=== PATIENT | male | born 1950 | race Caucasian/White ===

== ENCOUNTER → 2017-12-16 | Outpatient (CLI) | payer MEDICARE, OTHER ==
[~2017-12-16] MED LIST: ACTOS30 MG PO; ASPIRIN E.C. 8181 MG PO; BYSTOLIC10 MG PO; CARDIZEM CD 12120 MG PO; CARDIZEM120 MG PO; CATAPRES 0.1MG0.1 MG PO; COZAAR100 MG PO; DOXYCYCLINE 10100 MG PO; EPA-CON500 MG PO; HYDROCHLOROTH12.5 MG PO; JANUVIA100 MG PO; JARDIANCE25 PO; LANTUS100 U/ML SQ; LASIX 40MG TABL40 MG PO; LISINOPRIL40 MG PO; METFORMIN1000 MG PO; METFORMIN500 MG PO; NORCO 325 MG-51 TAB PO; NOVOLOG FLEX100 U/ML SC; PLAVIX 75MG TAB75 MG PO; PRINIVIL5 MG PO; SIMVASTATIN20 MG PO; SODIUM CHLORIDE 5% PO; STOOL SOFTENER100 M2 PO; TOPROL XL 25MG25 MG PO; VALIUM 5MG T5 MG/TAB PO; VICTOZA6 MG/ML SC; VITAMIN D1000 IU PO; ZOCOR 20MG20 MG PO
== END ==
LOC: COL.RAD 08:29
DX: I70.209 Unspecified atherosclerosis of native arteries of extremities, unspecified extremity (principal); M79.604 Pain in right leg; M79.605 Pain in left leg; N28.1 Cyst of kidney, acquired; K80.20 Calculus of gallbladder without cholecystitis without obstruction; R60.0 Localized edema
CPT/HCPCS: Q9967

== ENCOUNTER → 2022-01-30 | Outpatient (CLI) | payer MEDICARE, OTHER ==
[2022-01-30 13:06] LABS: CALCIUM 9.4 mg/dL (8.4-10.2); CREATININE, serum 1.11 mg/dL (0.72-1.25); POTASSIUM 4.1 mmol/L (3.5-4.5)
== END ==
LOC: COL.LAB 12:29
PROVIDERS: Internal Medicine
DX: N28.9 Disorder of kidney and ureter, unspecified (principal); E86.0 Dehydration

== ENCOUNTER 2023-11-25 11:31 | Inpatient (IN) | payer MEDICARE, OTHER ==
[~2023-11-25] VITALS: Ht 175.3 cm; Wt 107.1 kg
[~2023-11-25 11:31] MED LIST changes: +CETRA VITE SENI1 TAB PO; +FLOMAX 0.40.4 MG/CAP PO; +GLUCOPHAGE1000 MG PO; +LASIX 20MG TABL20 MG PO; +LIPITOR 10MG10 MG PO; +LOPRESSOR 225 MG/TAB PO; +LOPRESSOR100 MG PO; +MINOXIDIL 2.5 PO; +NORVASC 10MG10 MG PO; +OMEGA-31 SGL PO; +OXYGEN NASAL.CANN; +OZEMPIC2 MG/0.75 SQ; +PREDNISONE20 MG PO; +VITAMIN B COMPL1 SGL PO; -VITAMIN D1000 IU PO; +VITAMIN D31000 I1 PO; +ZYRTEC10MGSGL PO
[2023-11-25] MEDS ORDERED: ROCEPHIN 2GM VIAL21 IV (13:34)
[2023-11-25] MEDS ORDERED: HUMALOG PEN100 U/ML SQ ×2 (13:38→13:40)
[2023-11-25] MEDS ORDERED: MELATONIN5 M1 PO (13:41)
[2023-11-25] MEDS ORDERED: ROXICODONE 55 MG/TAB PO (13:41)
[2023-11-25] MEDS ORDERED: MIRALAX PA17 GM/Dose PO (13:42)
[2023-11-25] MEDS ORDERED: SENNA-S 50 MG-81 TAB PO (13:43)
[2023-11-25] MEDS ORDERED: CUBICIN 500MG500 MG IV (13:43)
[2023-11-25] MEDS ORDERED: MOUNJARO7.5 MG/0.5 SQ (13:46)
[2023-11-25] MEDS ORDERED: NEURONTIN100 MG/CAP PO (13:49)
[2023-11-25] MEDS ORDERED: Sennosides/Docusate 8.6-50 MG TAB PO PRN (15:15)
[2023-11-25] MEDS ORDERED: Polyethylene Glycol 3350 17 GM PDS PO PRN (15:15)
[2023-11-25] MEDS ORDERED: Docusate Sodium 100 MG CAP PO PRN (15:15)
[2023-11-25] MEDS ORDERED: Naloxone 0.4 MG/ML VIAL IV PRN (15:15)
[2023-11-25] MEDS ORDERED: Acetaminophen 325 MG TAB PO PRN (15:15)
[2023-11-25] MEDS ORDERED: hydrALAZINE 10 MG TAB PO PRN (15:30)
[2023-11-25] MEDS ORDERED: oxyCODONE 5 MG TAB PO PRN (15:30)
[2023-11-25] MEDS ORDERED: Empagliflozin 25 MG TAB PO SCH (15:45)
[2023-11-25] MEDS ORDERED: Furosemide 20 MG TAB PO SCH (16:00)
[2023-11-25] MEDS ORDERED: Glucagon 1 MG VIAL IM PRN (16:15)
[2023-11-25] MEDS ORDERED: Dextrose 50% Water 25 GM/50 ML SYRINGE IV PRN (16:15)
[2023-11-25] MEDS ORDERED: Dextrose (Glucose) 15 GM (4 x 3.75 GM) Chewable TABLET PACK PO PRN (16:15)
[2023-11-25 16:26] VITALS: BP 173/74; PULSE 51
--- NOTE | 2023-11-25 16:26 | NUR ---
PT WORKING WITH THERAPY IN ROOM. V/S OBTAINED 40 MINUTES AFTER ADMINISTRATION OF HYDRALAZINE. PT'S B/P IMPROVED. PT REMAINS ASYMPTOMATIC. PT WORKING WITH PT, FAMILY AT BEDSIDE, DENIES FURTHER NEEDS. PT AGREEABLE TO PLAN OF CARE.
[2023-11-25] MEDS ORDERED: Insulin Lispro (HumaLOG) SQ SCH ×2 (16:30→17:00)
[2023-11-25] MEDS ORDERED: metFORMIN 500 MG TAB PO SCH (17:00)
[2023-11-25] MEDS ORDERED: NOVOLOG FLEX100 U/ML SQ ×3 (17:28→17:29)
[2023-11-25 18:42] VITALS: BP_SYST 173
[2023-11-25 19:00] VITALS: BP 188/71; PULSE 47; TEMP 97.8
--- NOTE | 2023-11-25 20:42 | NUR ---
PATIENT IS RESTING IN BED. DENIES ANY PAIN IN THE RIGHT FOOT BUT DOES HAVE SEVERAL QUESTIONS ABOUT HIS WOUND VAC WHICH THIS RN ANSWERED TO BEST ABILITY. DENIES ANY SHORTNESS OF BREATH OR CHEST PAIN. CURRENTLY STABLE ON ROOM AIR, ALERT AND ORIENTED. CALL LIGHT IS WITHIN REACH. BED IS LOCKED AND IN LOW POSITION.
[2023-11-25] MEDS ORDERED: Gabapentin 300 MG CAP PO SCH (21:00)
[2023-11-25] MEDS ORDERED: Melatonin 3 MG TAB PO SCH (21:00)
[2023-11-25] MEDS ORDERED: Sennosides/Docusate 8.6-50 MG TAB PO SCH (21:00)
[2023-11-25] MEDS ORDERED: Gabapentin 100 MG CAP PO SCH (21:00)
[2023-11-25 21:45] VITALS: BP_SYST 188
[2023-11-25 23:04] VITALS: BP 197/71; PULSE 54
[2023-11-25] MEDS ORDERED: hydrALAZINE 20 MG/ML 1 ML VIAL IV PRN (23:45)
[2023-11-26] VITALS (12 sets, daily range): BP systolic 128–182; BP diastolic 57–89; PULSE 55–72; TEMP 97.5–97.7
--- NOTE | 2023-11-26 00:04 | NUR ---
PCT INFORMED RN THAT PATIENT'S SYSTOLIC BLOOD PRESSURE WAS 200 WITH LOWEST READING BEING 197. WHILE RN WAS IN THE ROOM RECHECKING BLOOD PRESSURE, INITIAL READING WAS 172/67, HOWEVER THEN PATIENT'S ARRIVED TO THE ROOM AND BEGAN YELLING AT NURSE TO "DO SOMETHING", RN ADVISED TO EITHER STOP THE BEHAVIOR OR SECURITY WILL BE CALLED. RN CALLED HOSPITALIST AND RECEIVED ORDER FOR 10 MG IV HYDRALAZINE DUE TO HOW ELEVATED THE THE SYSTOLIC WAS. WILL CALL HOSPITALIST BACK WITH NEW BLOOD PRESSURE FOLLOWING HYDRALAZINE ADMINISTRATION.
--- NOTE | 2023-11-26 00:15 | NUR ---
INFORMED HOSPITALIST CONSUELO GREY APRN THAT BLOOD PRESSURE FOLLOWING IV HYDRALAZINE WAS 180/64. RN ADVISED TO REPEAT DOSE OF HYDRALAZINE 10 MG IV.
--- NOTE | 2023-11-26 00:45 | NUR ---
BLOOD PRESSURE FOLLOWING SECOND DOSE OF IV HYDRALAZINE 128/57. CALLED TO HOSPITALIST.
--- NOTE | 2023-11-26 06:40 | NUR ---
Pt laying in bed. No needs at this time. Call light in reach and bed alarm on.
--- NOTE | 2023-11-26 07:40 | NUR ---
Pt sitting up at bedisde, finishing breakfast. A&Ox4. VSS. S1S2. Clear lungs. ABD round, soft, non-tender. Palpable pulses in all extremities. +2 pitting edema in R foot and ankle, non-pitting edema in R lower leg. Offered to elevate R leg, Pt declined at this time. Wound Vac on continuous low suction on R lateral foot. Dressing is CDI. Wound vac has clear drainage in tubing. Pt denies pain, n/v, headaches. No further needs. Call light in reach and bed alarm on.
[2023-11-26] MEDS ORDERED: Losartan 50 MG TAB PO SCH (09:00)
[2023-11-26] MEDS ORDERED: amLODIPine 10 MG TAB PO SCH (09:00)
[2023-11-26] MEDS ORDERED: Cholecalciferol (Vit D3) 1000 Units TAB PO SCH (09:00)
[2023-11-26] MEDS ORDERED: DAPTOmycin 500 MG VIAL IV SCH (09:00)
[2023-11-26] MEDS ORDERED: Omega-3 Fatty Acid Esters (OTC) 1,000 MG CAP PO SCH (09:00)
[2023-11-26] MEDS ORDERED: DAPTOmycin 500 MG in NS 10 ML IV SCH (09:00)
[2023-11-26] MEDS ORDERED: Insulin Glargine-ygfn (Lantus) SQ SCH (09:00)
[2023-11-26] MEDS ORDERED: cefTRIAXone 2 G in Water For Injection,Sterile 20 ML IV SCH (09:00)
--- NOTE | 2023-11-26 11:10 | NUR ---
SW met with patient to complete intake. Patient provides he resides in [facility] with Albert Knight [phone]. Patient provides he is independent with ADLs and utilizes a cane for mobility previously. PCP is Dr. Pepe and pharmacy is [facility], and does not utilze any [facility] services at this time. Patient provides he does not have anyone appointed as DPOA/HC and did not wish to appoint anyone at this time. Patient plans to return to his home upon discharge. SW will continue to follow. Discharge plan: home
--- NOTE | 2023-11-26 12:58 | NUR ---
Data: Patient accepted spiritual care visit offered during Grease Press Helper rounds. Patient reflected on his and family life. Visit ended when Patient's lunch arrived. Patient accepted prayer. Assessment: Patient is social and enjoys having conversation with others. Plan of Care: Grease Press Helper provided supportive listening and prayer. Patient thanked Grease Press Helper for the visit. Grease Press Helper educated Patient to request Chaplains through his RN if anther visit is desired. Chaplains will remain available as needed/requested while Patient is admitted to this hospital.
[2023-11-26] MEDS ORDERED: Losartan 50 MG TAB PO ONE (16:45)
--- NOTE | 2023-11-26 18:26 | NUR ---
PCT reported Pt's BP was 168 during 1800 nrounds. This RN administered Losartan just prior to PCT checking VS. This RN rechecked Pt's BP: 183/69. Administered Hydralazine. Pt denies headache or visual changes. Call light in reach and bed alarm on.
--- NOTE | 2023-11-26 20:59 | NUR ---
PATIENT IS RESTING IN BED WATCHING TV. DENIES ANY PAIN IN HIS RIGHT FOOT RELATED TO HIS DIABETIC ULCER, HOWEVER IS HAVING PAIN IN THE LEFT FOOT WHICH HE STATES IS NOT NEW FOR HIM AND IT COMES AND GOES. SYSTOLIC BLOOD PRESSURE TONIGHT IS 182, 10MG PO HYDRALAZINE GIVEN, DENIES ANY HEADACHE, DIZZINESS, OR SHORTNESS OF BREATH. CALL LIGHT IS WITHIN REACH. BED IS LOCKED AND IN LOW POSITION.
[2023-11-27] VITALS (7 sets, daily range): BP systolic 130–185; BP diastolic 67–74; PULSE 53–69; TEMP 97.6–97.8
--- NOTE | 2023-11-27 01:58 | NUR ---
PATIENT CALLED STATING HE FELT LIKE HIS BLOOD SUGAR WAS GOING LOW. WHEN RN ASKED WHY HE FELT THIS WAY, HE STATED THAT HIS CGM TOLD HIM HIS BLOOD SUGAR WAS 64 AND TRENDING DOWN. RN CHECKED BLOOD SUGAR WITH FINGER STICK AND READING WAS 107. PATIENT DENIES ANY LIGHT HEADEDNESS, CHILLS, NAUSEA, OR SWEATS.
--- NOTE | 2023-11-27 06:05 | NUR ---
PCT REPORTED BLOOD PRESSURE 180/71. PATIENT DENIES ANY HEADACHE, BLURRED VISION, CHEST PAIN. 10 MG PO HYDRALAZINE GIVEN
[2023-11-27 06:18] LABS: HEMATOCRIT 38.7 % (42.0-52.0); HEMOGLOBIN 12.1 g/dl (13.5-18.0); MEAN CELL VOLUME 89 fl (80.0-100.0); MEAN CORPUSCULAR HEMOGLOBIN 28 pg (27-31); MEAN CORPUSCULAR HGB CONC 31 g/dl (33.0-37.0); MEAN PLATELET VOLUME 8.6 fl (7.4-10.4); PLATELET COUNT 489 K/mm3 (130-400); RED BLOOD COUNT 4.37 M/mm3 (4.20-5.60)
[2023-11-27 06:47] LABS: ALBUMIN 2.5 g/dL (3.4-4.8); BILIRUBIN,TOTAL 0.4 mg/dL (0.2-1.2); CALCIUM 8.9 mg/dL (8.4-10.2); CREATININE, serum 1.16 mg/dL (0.72-1.25); POTASSIUM 3.8 mEq/L (3.5-4.5); TOTAL PROTEIN 6.7 g/dl (6.2-8.1)
[2023-11-27 08:00] LABS: EOSINOPHIL 7 % (0-4); LYMPHOCYTE 20 % (20.0-51.0); NEUTROPHILS 62 % (42.0-75.2)
[2023-11-27 08:01] LABS: PLATELET ESTIMATE INCREASED (NORMAL)
[2023-11-27] MEDS ORDERED: Losartan 50 MG TAB PO SCH (09:00)
--- NOTE | 2023-11-27 10:20 | NUR ---
PT SITTING UP IN CHAIR, ALERT AND ORIENTEDX4. NO COMPLAINTS OF PAIN AT THIS TIME. ASSESSED AND GAVE MORNING MEDS. WOUND VAC HAS LOW AMOUND OF DRAINAGE COMING OUT. NO OTHER COMPLAINTS AT THIS TIME. CALL LIGHT WITHIN REACH.
[2023-11-28 05:57] VITALS: BP 142/60; PULSE 65; TEMP 97.5
--- NOTE | 2023-11-28 06:40 | NUR ---
pt was sitting in chair at start of shift alert and oriented x3, accompanied by his . Wound vac to his R foot to continuous suction, CDI. PICC to upper R arm patent. Assessed and medicated per emar, c/o 4/10 pain in left foot but does not want to be medicated for it. Up in wc eating breakfast at this time. Call light within reach chair alarm engaged.
[2023-11-28 07:00] VITALS: BP_SYST 142
--- NOTE | 2023-11-28 08:00 | NUR ---
PATIENT A&O X4. VSS. NO C/O PAIN OR N/V. SHIFT ASSESSMENT COMPLETE. TRANSFERS WITH ASSIST X1. PICC IN RIGHT UPPER ARM. FLUSHED AND CLAMPED. PICC CAP CHANGED. ON LOVENOX FOR VTE PROPHYLAXIS. WOUND VAC INTACT AND DRESSING IS CLEAN AND DRY. PLAN TO CHANGE WOUND VAC DRESSING TODAY. CALL LIGHT AND PERSONAL BELONGINGS WITHIN REACH. NO FURTHER NEEDS AT THIS TIME.
--- NOTE | 2023-11-28 11:28 | NUR ---
PATIENT ALERT AND ORIENTED X4. VSS. PATIENT HERE FOR DEBILITY R/T CHRONIC RIGHT FOOT WOUND. PATIENT DENIES ANY PAIN. PATIENT ON RA. TOLERATING PO. PICC TO RIGHT UPPER ARM, SINGLE LUMEN, FLUSHES WELL WITH GOOD BLOOD RETURN. CAP CHANGED THIS AM. AM MEDS ADMINISTERED. NO FURTHER NEEDS. CALL LIGHT IN REACH. BED ALARM ON.
--- NOTE | 2023-11-28 14:27 | NUR ---
putty worker met with pt to assess for any needs and introduce herself. Pt verbalized no needs or concerns to this director of social media marketing. Discharge Plan: re-eval
--- NOTE | 2023-11-28 15:16 | NUR ---
Admission QIM scores were reviewed by the team. Code of 88 chosen for oral hygiene was determined by team discussion to be the most usual performance before interventions for this patient during the assessment period. Code of 88 chosen for toilet transfers was determined by team discussion to be the most usual performance for this patient during the discharge assessment period.--Morena Batres, PD
[2023-11-28 17:09] VITALS: BP 142/68; PULSE 70; TEMP 97.5
[2023-11-28 19:30] VITALS: BP_SYST 142
--- NOTE | 2023-11-28 19:31 | NUR ---
RECEIVED CHANGE OF SHIFT REPORT FROM DAY SHIFT NURSE. PATIENT UP IN CHAIR. IN ROOM, EXIT ALARM ON, CALL LIGHT WITHIN PATIENT'S REACH. NO NEEDS VOICED AT TIME OF REPORT.
--- NOTE | 2023-11-28 21:46 | NUR ---
PATIENT REFUSED STOOL SOFTENER, SEE JUL. UP IN W/C, DENIES ANY NEEDS OR COMPLAINTS CURRENTLY. FAMILY JUST LEFT ROOM. EXIT ALARM ON WHILE UP IN CHAIR, CALL LIGHT WITHIN PATIENT'S REACH.
--- NOTE | 2023-11-29 01:06 | NUR ---
RESTING IN BED WITH EYES CLOSED AND EVEN/NONLABORED BREATHING. DOES NOT WAKE DURING NURSE ROUNDING. EXIT ALARM ON WHEN IN BED WITH CALL LIGHT WITHIN PATIENT'S REACH.
[2023-11-29 04:57] VITALS: BP 129/67; PULSE 68; TEMP 97.5
--- NOTE | 2023-11-29 07:03 | NUR ---
CHANGE OF SHIFT REPORT GIVEN TO DAY SHIFT NURSELUIZ. PATIENT UP IN CHAIR, EXIT ALARM ON, CALL LIGHT WITHIN PATIENT'S REACH.
[2023-11-29 07:06] VITALS: BP_SYST 129
--- NOTE | 2023-11-29 09:53 | NUR ---
PATIENT ALERT AND ORIENTED X4 VSS. PATIENT HERE FOR S/P FOOT SURGERY. WOUND VAC TO LATERAL FOOT WITH MINIMAL DRAINAGE, NO LEAKS. PICC TO RIGHT UPPER ARM, SINGLE LUMEN, FLUSHES WELL WITH GOOD BLOOD RETURN. PATIENT TOLERATING PO. AM MEDS ADMINISTERED. NO FURTHER NEEDS. CALL LIGHT IN REACH. CHAIR ALARM ON.
[2023-11-29 17:00] VITALS: BP 159/70; PULSE 70; TEMP 97.4
[2023-11-29 19:00] VITALS: BP_SYST 159
--- NOTE | 2023-11-29 19:14 | NUR ---
RECEIVED CHANGE OF SHIFT REPORT FROM DAY SHIFT NURSE.
--- NOTE | 2023-11-30 03:49 | NUR ---
PATIENT RESTING IN BED, EXIT ALARM ON, CALL LIGHT WITHIN PATIENT'S REACH. PATIENT UP TO BATHROOM PER W/C, OBSERVED PATIENT TRANSFERS FROM CHAIR/BED TO W/C AND SELF PROPELL TO BATHROOM WITH NO OBSERVED DIFFICULTY. PATIENT ABLE TO KEEP WEIGHT OFF RIGHT FOOT MAJORITY OF TRANSFERS WITH NO REPORTED DISCOMFORT TO RIGHT FOOT AREA. OBSERVED SCANT AMOUNT OF LIGHT REDDISH DRAINING IN WOUND VAC TUBING. ALBER WRAP TO RIGHT FOOT AREA REMAINS CLEAN/DRY/INTACT CURRENTLY
--- NOTE | 2023-11-30 04:43 | NUR ---
PATIENT REPORTS THAT HIS DEXCOM ALERTED HIM OF BLOOD GLUCOSE READING OF 63. PATIENT TREATED WITH GLUCERNA THAT HE HAD AT BEDSIDE AND TOOK 100 PERCENT OF DRINK.
[2023-11-30 05:17] VITALS: BP 135/76; PULSE 65; TEMP 97.6
[2023-11-30 07:00] VITALS: BP_SYST 135
--- NOTE | 2023-11-30 07:18 | NUR ---
CHANGE OF SHIFT REPORT GIVEN TO DAY SHIFT NURSES, ERASTO.
--- NOTE | 2023-11-30 08:00 | NUR ---
PATIENT A&O X4. VSS. TRANSFERS WITH ASSIST X1. WOUND VAC DRESSING CHANGED. NO C/O PAIN OR N/V. PICC LINE IN R UPPER ARM. DRESSING CHANGE TODAY. PICC LINE IS INTACT AND PATENT. SHIFT ASSESSMENT COMPLETE. CALL LIGHT WITHIN REACH. NO FURTHER NEEDS AT THIS TIME.
--- NOTE | 2023-11-30 15:57 | NUR ---
iron worker foreman attended team conference meeting with [facility] Staff and was informed pt will be a re-eval for next week. Pt will need a knee walker, wheelchair, bariatric commode, and FWW. SW was informed pt's daughter was looking at the cost of these with [facility]. The biggest barrier to pt's discharge is having a ramp to go up his stairs and this has not yet been completed. The team advised pt's family or pt calling around to have someone build this as renting one might not be feasible, if it is too large/steep. SW was informed to schedule a family meeting for pt as well. JACY met with pt to provide team conference notes. SW inquired about the need for a ramp and if he has anyone working on this or able. Pt reports his daughter was on her way up, but she priced medical items and someone will come out to measure for a ramp. SW encouraged him to continue to do this to assist with a safe discharge plan at home. He reports no financial constraints for ordering an equipment. He was agreeable to ordering a wheelchair upon discharge as Medicare will cover this. JACY discussed family meeting need for Tuesday and he reports he will speak with family when they arrive. Pt has no further needs from JACY. Discharge Plan: re-eval
[2023-11-30 18:20] VITALS: BP 185/64; PULSE 72; TEMP 97.5
--- NOTE | 2023-11-30 18:29 | NUR ---
BP HIGH. PRN MEDICATION GIVEN.
[2023-11-30 19:30] VITALS: BP_SYST 185
--- NOTE | 2023-11-30 19:30 | NUR ---
RECEIVED CHANGE OF SHIFT REPORT FROM DAY SHIFT NURSE.
--- NOTE | 2023-11-30 20:00 | NUR ---
UP IN CHAIR WITH FAMILY PRESENT IN ROOM. PATIENT DENIES ANY NEEDS OR CONCERNS CURRENTLY. EXIT ALARM ON, CALL LIGHT WITHIN PATIENT'S REACH.
[2023-12-01 05:46] VITALS: BP 135/67; PULSE 54; TEMP 97.7
[2023-12-01 06:26] LABS: HEMATOCRIT 37.2 % (42.0-52.0); HEMOGLOBIN 11.6 g/dl (13.5-18.0); MEAN CELL VOLUME 91 fl (80.0-100.0); MEAN CORPUSCULAR HEMOGLOBIN 28 pg (27-31); MEAN CORPUSCULAR HGB CONC 31 g/dl (33.0-37.0); MEAN PLATELET VOLUME 9.2 fl (7.4-10.4); PLATELET COUNT 428 K/mm3 (130-400); RED BLOOD COUNT 4.11 M/mm3 (4.20-5.60); REDCELL DISTRIBUTION WIDTH-CV 14.6 % (11.5-14.5)
[2023-12-01 06:36] LABS: ALBUMIN 2.7 g/dL (3.4-4.8); BILIRUBIN,TOTAL 0.3 mg/dL (0.2-1.2); C-REACTIVE PROTEIN 1.46 mg/dL (0.00-0.50); CREATININE, serum 1.16 mg/dL (0.72-1.25); POTASSIUM 3.7 mEq/L (3.5-4.5); TOTAL PROTEIN 6.4 g/dl (6.2-8.1)
[2023-12-01 06:45] VITALS: BP_SYST 135
--- NOTE | 2023-12-01 07:18 | NUR ---
0645 - Pt asleep, laying in bed comfortably. No concerns at this time. Call light within reach. Bed alarm set.
--- NOTE | 2023-12-01 07:19 | NUR ---
CHANGE OF SHIFT REPORT GIVEN TO DAY SHIFT NURSEDAVE. PATIENT TOLERATED TRANSFERS FROM BED/CHAIR TO W/C TO GO/FROM BATHROOM, OBSERVED STAND/PIVOT TRANSFER TECHNIQUE WITH GAITBELT&WW WITHOUT REPORTED PROBLEMS OR CONCERNS. PATIENT DENIED PAIN OR COMPLAINTS THROUGHOUT THE NIGHT. WOUND VAC WITH ALBER WRAP IN PLACE TO LATERAL RIGHT FOOT, OBSERVED SMALL AMOUNTS OF CLEAR LIGHT RED DRAINAGE IN WOUND VAC TUBING.
[2023-12-01 07:20] LABS: BAND 1 % (0-10); BASOPHIL 1 % (0-2); EOSINOPHIL 9 % (0-4); LYMPHOCYTE 23 % (20.0-51.0); METAMYELOCYTE 2 % (0-0); MYELOCYTE 1 % (0-0); NEUTROPHILS 51 % (42.0-75.2); PLATELET ESTIMATE INCREASED (NORMAL)
[2023-12-01 07:21] LABS: HYPOCHROMIA 2+
--- NOTE | 2023-12-01 08:59 | NUR ---
0800 - Pt awake, sitting up in wheelchair for morning assessment and med pass. Pt does not complain of pain at this time. Wound vac in good opperation, small amount of sanguinous drainage noted in vac canister. PICC flushes, with good blood return. No concerns at this time. Chair alarm set. Call light within reach.
[2023-12-01] MEDS ORDERED: Insulin Glargine-ygfn (Lantus) SQ SCH (09:00)
[2023-12-01 17:53] VITALS: BP 154/56; PULSE 66; TEMP 97.6
[2023-12-01 19:00] VITALS: BP_SYST 154
--- NOTE | 2023-12-01 22:00 | NUR ---
Patient resting in bed. Assissted patient to bathroom and back to bed. Denies any pain or needs at this time. Assessment complete. PICC to right upper arm flushes easily with good blood return. Call light and personal items in reach. Bed in low position and bed alarm on.
[2023-12-02 06:09] VITALS: BP 152/74; PULSE 51; TEMP 97.7
[2023-12-02 06:45] VITALS: BP_SYST 152
--- NOTE | 2023-12-02 07:18 | NUR ---
0645 - Report received. Pt awake, sitting up in chair. Pt does not complain of pain at this time. Pt wound vac running, continuous low suctioning. No other conerns at this time. Chair alarm on. Call light within reach.
--- NOTE | 2023-12-02 10:31 | NUR ---
0837 - Pt awake, sitting up in chair for morning assessment and med pass. Pt does not complain of pain at this time. Wound vac on continuous low suctioning, plugged in and charging. Unmeasurable, small amount of sanginous drainage in container. PICC flushes, with good blood return. No concerns at this time. Chair alarm on. Call light within reach.
[2023-12-02 18:16] VITALS: BP 147/44; PULSE 64; TEMP 97.7
--- NOTE | 2023-12-02 21:00 | NUR ---
PT A&O X4 SITTING UP IN CHAIR. SHIFT ASSESSMENT COMPLETE & HS MEDS GIVEN. DENIES PAIN. WOUND VAC TO RT FOOT CDI. CONTACT PRECAUTIONS IN PLACE FOR C.DIFF RULE OUT, STOOL SAMPLE SENT TO LAB. PT DENYING FURTHER NEEDS. CALL LIGHT IN REACH.
--- NOTE | 2023-12-03 05:00 | NUR ---
CDIFF SAMPLE HAS NOT RESULTED. CALLED LAB, THEY SAID THEY WOULD TRY TO FIGURE OUT WHY AND CALL BACK
[2023-12-03 05:42] VITALS: BP 154/47; PULSE 55; TEMP 97.8
--- NOTE | 2023-12-03 06:30 | NUR ---
PT RESTING IN CHAIR WITH UNLABORED RESP. NO COMPLAINTS THROUGHOUT THE NIGHT. CALL LIGHT IN REACH
[2023-12-03 07:29] VITALS: BP_SYST 154
[2023-12-03 07:59] LABS: CLOSTRIDIUM DIFF A/B NEG
--- NOTE | 2023-12-03 09:00 | NUR ---
Patient sitting up in bed, alert and oriented x 4, VSS. States some nausea. Assessment completed, meds given. Vacum with reddish output. No further needs at this time. Call light within reach.
[2023-12-03 18:30] VITALS: BP 136/66; PULSE 72; TEMP 97.5
[2023-12-03 19:13] VITALS: BP_SYST 136
--- NOTE | 2023-12-03 21:00 | NUR ---
PT A&O X4 SITTING UP IN CHAIR. SHIFT ASSESSMENT COMPLETE & HS MEDS GIVEN. PT DENYING PAIN. WOUND VAC TO RT FOOT WITH ACEWRAP IN PLACE & REDDISH OUTPUT IN CANISTER. DENIES FURTHER NEEDS. CALL LIGHT IN REACH
[2023-12-04 05:07] VITALS: BP 155/74; PULSE 50; TEMP 97.6
--- NOTE | 2023-12-04 06:38 | NUR ---
PT SITTING UP IN CHAIR THIS MORNING. DENYING PAIN OR NEEDS. CALL LIGHT IN REACH
[2023-12-04 07:15] VITALS: BP_SYST 155
--- NOTE | 2023-12-04 08:25 | NUR ---
Pt. sitting up in chair. Pt. is A&OX3, assessment complete. PICC to rt. upper arm. Cap change completed this am. Blood return noted. Dressing CDI. Wound vac to rt. foot. Dressing intact. Wound vac connected without complications. Pt. denies pain at this time. Call light within reach.
[2023-12-04 18:30] VITALS: BP 159/69; PULSE 68; TEMP 97.6
--- NOTE | 2023-12-04 19:00 | NUR ---
PICC LINE CAP CHANGED PER REPORT FROM DAY SHIFT NURSEJULISSA.
[2023-12-04 19:30] VITALS: BP_SYST 159
--- NOTE | 2023-12-04 19:30 | NUR ---
RECEIVED CHANGE OF SHIFT REPORT FROM DAY SHIFT NURSE. PATIENT UP IN CHAIR, EXIT ALARM ON, CALL LIGHT WITHIN PATIENT'S REACH.
--- NOTE | 2023-12-04 20:00 | NUR ---
UP TO BATHROOM PER W/C, STD/PIVOT/TRANSFER FROM CHAIR TO W/C TO BATHROOM TOILET AND BACK TO W/C AND TO BED WITH MIN STAFF ASSIST. RIGHT FOOT WOUND VAC IN PLACE AND INTACT, OBSERVED SMALL AMOUNT LIGHT RED DRAINAGE IN WOUND VAC TUBING. PATIENT DENIES PAIN TO RIGHT FOOT. PICC LINE IN PLACE/DRSG INTACT. EXIT ALARMS ON WHEN UP IN CHAIR. DENIES CHEST PAIN/SHORTNESS OF BREATH/NAUSEA AT THIS TIME.
[2023-12-05 06:00] VITALS: BP 148/73; PULSE 60; TEMP 97.6
[2023-12-05 07:00] VITALS: BP_SYST 148
--- NOTE | 2023-12-05 07:12 | NUR ---
CHANGE OF SHIFT REPORT GIVEN TO DAY SHIFT NURSEZOILA
--- NOTE | 2023-12-05 08:00 | NUR ---
PATIENT ALERT AND ORIENTATED. VSS. NO C/O PAIN OR N/V. PATIENT UP WITH ASSIST X1. WOUND VAC ON R LATERAL FOOT. DRESSING IS CLEAN, DRY, AND INTACT. CENTRAL LINE IN R UPPER ARM - DRESSING CLEAN, DRY, AND INTACT AND BLOOD RETURN NOTED. PLAN TO CHANGE WOUND VAC TODAY. NO FURTHER NEEDS AT THIS TIME. CALL LIGHT WITHIN REACH.
[2023-12-05] MEDS ORDERED: Multivitamin TAB PO SCH (09:00)
[2023-12-05] MEDS ORDERED: Loperamide 2 MG CAP PO PRN (10:00)
--- NOTE | 2023-12-05 13:30 | NUR ---
Data Migration Consultant met with patient to check in and introduce herself. Patient confirmed Tuesday's family meeting and stated his ramp should be started at home today. Patient also stated they have started working on ordering needed equipment. Patient did remark he will need a wheelchair ordered prior to discharge.
[2023-12-05 17:48] VITALS: BP 159/64; PULSE 64; TEMP 98.1
[2023-12-05 19:00] VITALS: BP_SYST 159
--- NOTE | 2023-12-05 19:42 | NUR ---
RECEIVED CHANGE OF SHIFT REPORT FROM DAY SHIFT NURSE. PATIENT UP IN CHAIR, EXIT ALARM ON, CALL LIGHT WITHIN PATIENT'S REACH. FAMILY PRESENT IN ROOM AT TIME OF REPORT.
--- NOTE | 2023-12-05 20:00 | NUR ---
OBSERVED SCANT AMOUNT OF DRAINAGE IN WOUND VAC OF LIGHT CLEAR RED. WOUND VAC IN PLACE, PATENT. PICC LINE TO RUE, PATENT/DRESSING CDI. PATIENT DENIES ANY NEEDS OR DISCOMFORT. DENIES CHEST PAIN/SHORTNESS OF BREATH/NAUSEA AT THIS TIME. CHAIR EXIT ALARM ON WHILE UP IN CHAIR, CALL LIGHT WITHIN PATIENT'S REACH.
--- NOTE | 2023-12-05 21:54 | NUR ---
PATIENT REQUESTED AND GIVEN IMMODIUM FOR LOOSE STOOL, SEE MAR. NO OTHER NEEDS REPORTED AT THIS TIME.
--- NOTE | 2023-12-06 05:00 | NUR ---
PATIENT TRANSFER FROM BED/CHAIR TO W/C TO PROPEL SELF TO/FROM BATHROOM WITH SBA FROM NURSING STAFF. DENIES CHEST PAIN/SHORTNESS OF BREATH/NAUSEA AT THIS TIME. EXIT ALARM ON WHEN IN BED WITH CALL LIGHT WITHIN PATIENT'S REACH.
[2023-12-06 05:22] VITALS: BP 163/72; PULSE 54; TEMP 97.4
[2023-12-06 07:00] VITALS: BP_SYST 163
--- NOTE | 2023-12-06 07:24 | NUR ---
CHANGE OF SHIFT REPORT GIVEN TO DAY SHIFT NURSERITA
[2023-12-06 16:49] VITALS: BP 158/77; PULSE 57; TEMP 97.5
[2023-12-06 19:00] VITALS: BP_SYST 158
--- NOTE | 2023-12-06 19:00 | NUR ---
RECEIVED CHANGE OF SHIFT REPORT FROM DAY SHIFT NURSE. PATIENT UP IN CHAIR WITH FAMILY IN ROOM. EXIT ALARM ON, CALL LIGHT WITHIN PATIENT'S REACH. PATIENT DENIES ANY NEEDS AT THIS TIME.
--- NOTE | 2023-12-06 19:42 | NUR ---
PATIENT UP IN CHAIR, FAMILY IN ROOM. EXIT ALARM ON, CALL LIGHT WITH PATIENT'S REACH
[2023-12-07 06:01] VITALS: BP 140/59; PULSE 50; TEMP 97.4
[2023-12-07 07:00] VITALS: BP_SYST 140
--- NOTE | 2023-12-07 07:30 | NUR ---
CHANGE OF SHIFT REPORT GIVEN TO DAY SHIFT NURSEZOILA.
--- NOTE | 2023-12-07 08:00 | NUR ---
PATIENT A&O. VSS. NO C/O PAIN OR N/V. JUAN IN ROOM CHANGING WOUND VAC DRESSING. PICC LINE IN [place] IS INTACT AND BLOOD RETURN NOTED. PATIENT IS ASSIST X1 WITH TRANSFERS. PATIENT USES SCOOTER TO AMBULATE. NO FURTHER NEEDS AT THIS TIME. CALL LIGHT WITHIN REACH.
--- NOTE | 2023-12-07 14:51 | NUR ---
Double Cut Off Saw Operator participated in patient family meeting which included patient's , Albert and daughter, Gladis (ph#[phone]) at bedside. GUILLERMO Berg Director opened meeting by explaining it's purpse followed up with a medical update from Dr. Andrews. PT/OT provided update on progress and recommendations. SW discussed discharge date of 12/09/23 and recommendation for Home Health. SW also discussed coordination of IV antibiotics and wound vac. Patient stated he has done home IV antibiotics in the past and feels comfortable doing that again. SW faxed referral to [facility] to establish home IV antibiotics. Patient will need Dapto and Rocephin once daily. SW submitted request to [facility] [employer] for home wound vac with the assistance of wound care provider, Kathe. SW followed up with patient to present team conference notes and also provide Medicare.gov list of HH options. SW will follow up on choice for agency. Patient will need wheelchair ordered prior to discharge home.
--- NOTE | 2023-12-07 14:58 | NUR ---
PATIENT ALERT AND ORIENTED X4. VSS. PATIENT HERE FOR RIGHT FOOT WOUND. WOUND VAC CHANGED THIS AM. PICC TO RIGHT UPPER ARM, SINGLE LUMEN, FLUSHES WELL WITH GOOD BLOOD RETURN. PATIENT DENIES PAIN THIS AM. AM MEDS ADMINISTERED. NO FURTHER NEEDS. CALL LIGHT IN REACH. CHAIR ALARM ON.
[2023-12-07 18:31] VITALS: BP 157/68; PULSE 64; TEMP 97.7
[2023-12-07 19:00] VITALS: BP_SYST 157
--- NOTE | 2023-12-08 02:50 | NUR ---
NURSING SHIFT ASSESSMENT COMPLETED. THE PATIENT WAS ALERT AND ORIENTED. THE PATIENT WAS ASSISTED TO THE BATHROOM USING HIS SCOOTER. THE PATIENT MANEUVERED THE SCOOTER WELL AND TOLERATED THE ACTIVITY WELL. THE PATIENT DENIED PAIN OR DISCOMFORT. FRESH WATER WAS PROVIDED. NO OTHER NEEDS AT THIS TIME. THE WOUND VAC IS WORKING WELL, NO AIR LEAKS NOTED, NO DRAINAGE NOTED. CALL LIGHT AND PERSONAL BELONGINGS WITHIN REACH. BED IN LOW POSITION AND BED ALARM ON.
[2023-12-08 05:06] VITALS: BP 150/83; PULSE 49; TEMP 97.7
[2023-12-08 07:00] VITALS: BP_SYST 150
[2023-12-08 07:34] LABS: BASO # 0.1 K/mm3 (0.0-0.2); BASO % 1.1 % (0.0-2.0); EOS # 0.4 K/mm3 (0.0-0.7); EOS % 5.3 % (0.0-4.0); GRAN # 5.1 K/mm3 (1.4-6.5); GRAN % 61.7 % (42.2-75.2); HEMATOCRIT 38.5 % (42.0-52.0); HEMOGLOBIN 12.4 g/dl (13.5-18.0); LYMPH # 1.7 K/mm3 (1.2-3.4); LYMPH % 20.5 % (20.0-51.0); MEAN CELL VOLUME 88 fl (80.0-100.0); MEAN CORPUSCULAR HEMOGLOBIN 28 pg (27-31); MEAN CORPUSCULAR HGB CONC 32 g/dl (33.0-37.0); MEAN PLATELET VOLUME 9.7 fl (7.4-10.4); MONO # 0.8 K/mm3 (0.1-0.6); MONO % 10.2 % (1.7-9.3); PLATELET COUNT 319 K/mm3 (130-400); RED BLOOD COUNT 4.39 M/mm3 (4.20-5.60); REDCELL DISTRIBUTION WIDTH-CV 14.9 % (11.5-14.5)
[2023-12-08 07:48] LABS: BILIRUBIN,TOTAL 0.3 mg/dL (0.2-1.2); C-REACTIVE PROTEIN 1.63 mg/dL (0.00-0.50); CALCIUM 9.2 mg/dL (8.4-10.2); CREATININE, serum 1.21 mg/dL (0.72-1.25); POTASSIUM 3.9 mEq/L (3.5-4.5); TOTAL PROTEIN 6.8 g/dl (6.2-8.1)
--- NOTE | 2023-12-08 10:54 | NUR ---
PATIENT ALERT AND ORIENTED X4. VSS. PATIENT HERE FOR RIGHT FOOT WOUND. WOUND VAC CHANGED TUESDAY. PATIENT DENIES ANY PAIN THIS AM. AM MEDS ADMINISTERED. NO FURTHER NEEDS. CALL LIGHT IN REACH. CHAIR ALARM ON.
--- NOTE | 2023-12-08 14:27 | NUR ---
PATIENT RETURNING FROM THERAPY SPOKE TO A NURSE AT THE NURSES STATION AND REPORTED THAT HIS DEXACOM HAD ALERTED HIM TO HIS BLOOD SUGAR BEING LOW, UPON CHECKING SUGAR, [facility] NOTIFIED THIS NURSE OF A BLOOD SUGAR OF 46. DR. VALENCIA CALLED, DIDNT ANSWER. CALLED JAIME DOMINGUEZ TO REPORT SUGAR. BLOOD SUGAR RECHECK AFTER DRINKING JUICE REVEALED A BLOOD SUGAR OF 71. JAIME DOMINGUEZ NOTIFIED.
--- NOTE | 2023-12-08 16:13 | NUR ---
Physician Intensivist met with patient to follow up on Home Health and his preferences are 1) [facility] and 2) [facility] . JACY contacted Jessica at [facility] and faxed referral. Jessica followed up with JACY later and accepted. JACY submitted request for wound vac to [facility] online on 12/07/23. JACY uploaded requested documents this morning for review, including order form which Kathe, Wound Care provider assisted with. Order is still pending. JACY contacted [facility] and faxed referral and order for wheelchair, which will be delivered tomorrow. JACY spoke with Chelsea at [facility] who provided education to patient at bedside. JACY faxed flushing orders to [facility] that were signed by Dr. Andrews. JACY followed up with patient to provide the above update and present IM form. Patient verbalized understanding and provided signature. JACY placed form in chart and provided copy to patient.
[2023-12-08 18:13] VITALS: BP 125/65; PULSE 72; TEMP 98
[2023-12-08 19:00] VITALS: BP_SYST 125
--- NOTE | 2023-12-08 20:00 | NUR ---
NURSING SHIFT ASSESSMENT COMPLETED. THE PATIENT WAS ALERT AND ORIENTED. THE WOUND VAC WAS ON THE PTS RIGHT LATERAL FOOT. CONTINOUS SUCTION NOTED AT 125 mmHg, no air leak noted, no drainage noted. THE PATIENT IS TOLERATING THE THERAPY WELL. THE PATIENT DENIED PAIN OR DISCOMFORT. NO NEEDS AT THIS TIME. CALL LIGHT AND PERSONAL BELONGINGS WITHIN REACH.
[2023-12-08] MEDS ORDERED: NORVASC 10MG10 MG PO (23:43)
[2023-12-08] MEDS ORDERED: NEURONTIN300 MG/CAP PO (23:44)
[2023-12-08] MEDS ORDERED: COZAAR100 MG PO (23:44)
[2023-12-08] MEDS ORDERED: LANTUS SOLOS100 U/ML SQ (23:47)
[2023-12-09 06:00] VITALS: BP 157/64; PULSE 65; TEMP 97.5
[2023-12-09 07:20] VITALS: BP_SYST 157
[2023-12-09] MEDS ORDERED: Insulin Glargine-ygfn (Lantus) SQ SCH (09:00)
--- NOTE | 2023-12-09 10:51 | NUR ---
Patient awake, alert and oriented. Denies pain currently. Able to ambulate with scooter in room with nursing staff, steady. PICC to right upper arm, dressing clean/dry/intact. States he is ready to go home today. In chair with chair alarm on with call light within reach.
--- NOTE | 2023-12-09 14:18 | NUR ---
Pt discharged to home, picked up by [facility]. Educated on new medications and discharge instructions, pt and family verbalized understanding. All questions answered. PICC in place to right arm at discharge, pt educated on PICC discharge instructions including bathing restrictions and care plan. Wound vac to right foot at discharge, dressing changed and home machine swapped prior to discharge. Home health and outpatient wound care services set up prior to discharge, patient aware of scheduled appointments. Patient's wheelchair sent home with patient and family. Extra wound care supplies sent home with patient and family. All patient belongings sent home. Assisted out to car by nursing staff.
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
--- NOTE | 2023-12-09 16:18 | NUR ---
Discharge QIM scores were reviewed by the team. Code of 6 chosen for walking 10 feet was determined by team discussion to be the most usual performance for this patient during the discharge assessment period. Code of 6 chosen for walking 50 feet w/ 2 turns was determined by team discussion to be the most usual performance before interventions for this patient during the discharge assessment period. Code of 6 chosen for walking 150 feet was determined by team discussion to be the most usual performance for this patient during the discharge assessment period. Code of 9 chosen for 4 steps was determined by team discussion to be the most usual performance for this patient during the discharge assessment period.--Morena Batres,
== END 2023-12-09 14:23 | disposition home health service (06) | DRG 560 ==
PROVIDERS: Internal Medicine; Physician Assistant; ADMIT Physical Medicine & Rehabilitation Sports Medicine
DX: Z47.81 Encounter for orthopedic aftercare following surgical amputation (principal); I42.9 Cardiomyopathy, unspecified; R26.89 Other abnormalities of gait and mobility; E11.40 Type 2 diabetes mellitus with diabetic neuropathy, unspecified; R00.1 Bradycardia, unspecified; N40.0 Benign prostatic hyperplasia without lower urinary tract symptoms; E78.5 Hyperlipidemia, unspecified; E11.22 Type 2 diabetes mellitus with diabetic chronic kidney disease; I12.9 Hypertensive chronic kidney disease with stage 1 through stage 4 chronic kidney disease, or unspecified chronic kidney disease; N18.2 Chronic kidney disease, stage 2 (mild); E11.65 Type 2 diabetes mellitus with hyperglycemia; I25.10 Atherosclerotic heart disease of native coronary artery without angina pectoris; E11.51 Type 2 diabetes mellitus with diabetic peripheral angiopathy without gangrene; Z89.412 Acquired absence of left great toe; Z79.82 Long term (current) use of aspirin; Z74.09 Other reduced mobility; Z79.891 Long term (current) use of opiate analgesic; Z79.84 Long term (current) use of oral hypoglycemic drugs; Z79.4 Long term (current) use of insulin; Z79.85 Long-term (current) use of injectable non-insulin antidiabetic drugs; Z79.2 Long term (current) use of antibiotics; E87.5 Hyperkalemia; E11.649 Type 2 diabetes mellitus with hypoglycemia without coma
CPT/HCPCS: A6550; A9270; A9284; J0360; J0696; J0878; J1650; J1815